=== PATIENT | female | born 2000 | race Caucasian/White ===

== ENCOUNTER 2020-04-23 20:52 | Emergency (ER) | payer MEDICAID ==
--- NOTE | 2020-04-23 22:11 | ER Document Report ---
ED ENT - General Chief Complaint: Sore Throat Stated Complaint: SORE THROAT,SWOLLEN TONSILS Time Seen by Provider: 04/23/20 22:03 Mode of Arrival: Ambulatory Information source: Patient Notes: 19-year-old female presented to ED for sore throat. She does appear to have a tonsil stone on the right we we did do a strep test that she has a small baby but I honestly believe this will be a tonsil stone. Patient is alert oriented respirations regular nonlabored speaking in full sentences she states she has not had any fevers. She has had a sore throat mostly on the right was positive for strep Constitutional: Negative for fever. HENT: Planes of a sore throat last 2 days. We will send strep test Eyes: Negative for visual changes. Cardiovascular: Negative for chest pain. Respiratory: Negative for shortness of breath. Gastrointestinal: Negative for abdominal pain, vomiting or diarrhea. Genitourinary: Negative for dysuria. Musculoskeletal: Negative for back pain. Skin: Negative for rash. Neurological: Negative for headaches, weakness or numbness. 10 point ROS negative except as marked above and in HPI. PHYSICAL EXAMINATION: GENERAL: Well-appearing, well-nourished and in no acute distress. HEAD: Atraumatic, normocephalic. EYES: Pupils equal round extraocular movements intact, conjunctiva are normal. ENT: Pain with small enlargement to the right tonsil patient positive for strep NECK: Normal range of motion LUNGS: No respiratory distress Musculoskeletal: Normal range of motion NEUROLOGICAL: Normal speech, normal gait. PSYCH: Normal mood, normal affect. SKIN: Warm, Dry, normal turgor, no rashes or lesions noted. - HPI Patient complains to provider of: Throat problem Onset: Other - Few days Onset/Duration: Gradual Quality of pain: Sharp Pain Level: 4 Location of pain: Throat Associated symptoms: Sore throat Similar symptoms previously: No Recently seen / treated by doctor: No - Related Data Allergies/Adverse Reactions: Penicillins Allergy (Verified 04/23/20 22:46) Past Medical History - Social History Smoking Status: Current Every Day Smoker Cigarette use (# per day): Yes - Cigarettes a day Chew tobacco use (# tins/day): No Frequency of alcohol use: None Drug Abuse: None Lives with: Family Family History: Reviewed & Not Pertinent Patient has suicidal ideation: No Patient has homicidal ideation: No Pulmonary Medical History: Reports: Hx Bronchitis, Hx Pneumonia EENT Medical History: Reports: None Neurological Medical History: Reports: Hx Migraine Psychiatric Medical History: Reports: Hx Anxiety, Hx Attention Deficit Hyperactivity Disorder - Immunizations Hx Diphtheria, Pertussis, Tetanus Vaccination: Yes - 2019 Physical Exam - Vital signs Vitals: Temp Pulse Resp BP Pulse Ox 98.4 F 86 18 125/69 97 04/23/20 21:09 04/23/20 21:09 04/23/20 21:09 04/23/20 21:09 04/23/20 21:09 Course - Vital Signs Vital signs: Temp Pulse Resp BP Pulse Ox 98.4 F 86 18 125/69 97 04/23/20 21:09 04/23/20 21:09 04/23/20 21:04/23/20 21:04/23/20 21:09 Discharge - Discharge Clinical Impression: Strep throat Condition: Stable Disposition: HOME, SELF-CARE Additional Instructions: STREP THROAT: Your sore throat is due to the streptococcus germ (strep throat). Strep throat usually makes you feel quite ill with fever and aches, headache, swollen sore throat, and tender bumps under the angles of the jaw. Strep throat requires antibiotic treatment. Although the sore throat may go away by itself, complications such as rheumatic fever, kidney disease, or throat abscess can occur. We usually prescribe antibiotics by mouth. Be sure to take the medicine until it's gone. If you stop early, the strep may come back. If you are vomiting, are severely ill, or can't remember to take pills, we can give you an antibiotic shot. Take acetaminophen or ibuprofen for pain and fever. Sip frequent clear liquids, or use popsicles or ice chips. Anesthetic sprays or lozenges may help. Make sure the air in the room is not too dry. Avoid using decongestants or antihistamines. Call the doctor if there is no improvement in three days, or if you have difficulty breathing, increasing throat pain, high fever, rash, or frequent vomiting. Azithromycin Azithromycin (Zithromax) is a broad spectrum antibiotic in the same class as erythromycin. It can treat a variety of bacterial infections, but is most frequently used for respiratory infections. Azithromycin is extremely long-lasting. It accumulates in body tissues and continues to kill bacteria for many days. In order to improve absorption, Azithromycin should be taken at least one hour before or two hours after a meal. It does not have the same strong tendency to upset the stomach as erythromycin and is usually very well tolerated. Patients who have had a rash or other true allergic reactions to erythromycin should not take this medication. Call if you develop gastrointestinal distress, severe diarrhea, rash, hives, itching, or shortness of breath. Chloraseptic spray was [id number] that will also help with your sore throat. Salt and soda solution gargle 1 quart of water 1 tablespoon of salt 1 teaspoon of baking soda Mixed 3 ingredients together and boil for 1 minute Placed in a covered quart jar Use 1/2 ounce of cold solution to gargle 3 times a day FOLLOW-UP CARE: If you have been referred to a physician for follow-up care, call the physicians office for an appointment as you were instructed or within the next two days. If you experience worsening or a significant change in your symptoms, notify the physician immediately or return to the Emergency Department at any time for re-evaluation. Prescriptions: Penicillin V Potassium [Penicillin Vk 500 mg Tablet] 500 mg PO BID #20 tablet Azithromycin [Zithromax] 250 mg PO DAILY #4 tablet
[2020-04-23 22:47] VITALS: BP 128/70
[2020-04-23] MEDS ORDERED: AZITHROMYCIN 250 MG TABLET PO ONE (22:48)
== END 2020-04-23 22:54 | disposition home or self-care (01) ==
LOC: ER 20:52
DX: J02.0 Streptococcal pharyngitis (principal); F17.210 Nicotine dependence, cigarettes, uncomplicated; Z88.0 Allergy status to penicillin
CPT/HCPCS: 87880; 99283